=== PATIENT | male | born 1955 | race Caucasian/White ===

== ENCOUNTER 2022-09-02 12:15 | Outpatient (CLI) | payer MEDICARE, OTHER ==
[~2022-09-02 12:15] MED LIST: Magnevist 469MG/ML 20 ML VIAL ONE
== END 2022-09-02 12:16 | disposition home or self-care (01) ==
LOC: CSHMRI 12:15
PROVIDERS: ATTEND Internal Medicine
DX: K21.9 Gastro-esophageal reflux disease without esophagitis (principal); R14.3 Flatulence; K40.90 Unilateral inguinal hernia, without obstruction or gangrene, not specified as recurrent; R07.89 Other chest pain; K76.89 Other specified diseases of liver; D18.03 Hemangioma of intra-abdominal structures; N28.1 Cyst of kidney, acquired; D35.01 Benign neoplasm of right adrenal gland
CPT/HCPCS: 74183; 82565